=== PATIENT | male | born 1990 | race Caucasian/White ===

== ENCOUNTER 2021-09-09 11:34 | Emergency (ER) | payer OTHER, SELFPAY ==
[~2021-09-09] VITALS: Ht 170.2 cm; Wt 100.0 kg
[2021-09-09] MEDS ORDERED: OMEP-218 (11:39)
--- NOTE | 2021-09-09 12:04 | REP ---
INDICATION: band saw injury COMPARISON: None. TECHNIQUE: AP, lateral, bilateral oblique views left 3rd digit. FINDINGS: Soft tissue injury including laceration with small flecks of foreign body material overlie the head of the proximal phalanx and very subtle underlying injury to the bone cannot be excluded. IMPRESSION: Laceration with small flecks of foreign body material. Cannot exclude subtle injury to the head of the proximal phalanx. <Electronically signed by Drew Carlos > 09/09/21 1200
[2021-09-09] MEDS ORDERED: ceFAZolin SOD 1 GM in D5W MINI-BAG PLUS 50 ML IV ONE (12:55)
[2021-09-09] MEDS ORDERED: LIDOCAINE 1% MDV 20ML VIAL SC ONE (12:55)
[2021-09-09] MEDS ORDERED: CEPH500C PO (13:26)
--- OUTSIDE RECORDS SUMMARY | 2021-09-09 13:26 | CCD ---
Author Author [facility] Organization [facility] Address Unknown Phone Unavailable Care Team Providers Care Content Curator Name Role Phone NAREN CALDWELL MD Unavailable Unavailable NAREN CALDWELL MD Unavailable Unavailable NAREN CALDWELL MD Unavailable Unavailable NAREN CALDWELL MD Unavailable Unavailable NAREN CALDWELL MD Unavailable Unavailable NAREN CALDWELL MD Unavailable Unavailable NAREN CALDWELL MD Unavailable Unavailable NAREN CALDWELL MD Unavailable Unavailable NAREN CALDWELL MD Unavailable Unavailable NAREN CALDWELL MD Unavailable Unavailable NAREN CALDWELL MD Unavailable Unavailable NAREN CALDWELL MD Unavailable Unavailable NAREN CALDWELL MD Unavailable Unavailable NAREN CALDWELL MD Unavailable Unavailable NAREN CALDWELL MD Unavailable Unavailable NAREN CALDWELL MD Unavailable Unavailable NAREN CALDWELL MD Unavailable Unavailable NAREN CALDWELL MD Unavailable Unavailable NAREN CALDWELL MD Unavailable Unavailable NAREN CALDWELL MD Unavailable Unavailable NAREN CALDWELL MD Unavailable Unavailable NAREN CALDWELL MD Unavailable Unavailable NAREN CALDWELL MD Unavailable Unavailable NAREN CALDWELL MD Unavailable Unavailable NAREN CALDWELL MD Unavailable Unavailable NAREN CALDWELL MD Unavailable Unavailable NAREN CALDWELL MD Unavailable Unavailable NAREN CALDWELL MD Unavailable Unavailable NAREN CALDWELL MD Unavailable Unavailable NAREN CALDWELL MD Unavailable Unavailable NAREN CALDWELL MD Unavailable Unavailable NAREN CALDWELL MD Unavailable Unavailable NAREN CALDWELL MD Unavailable Unavailable NAREN CALDWELL MD Unavailable Unavailable NAREN CALDWELL MD Unavailable Unavailable NAREN CALDWELL MD Unavailable Unavailable NAREN CALDWELL MD Unavailable Unavailable NAREN CALDWELL MD Unavailable Unavailable NAREN CALDWELL MD Unavailable Unavailable NAREN CALDWELL MD Unavailable Unavailable NAREN CALDWELL MD Unavailable Unavailable NAREN CALDWELL MD Unavailable Unavailable NAREN CALDWELL MD Unavailable Unavailable NAREN CALDWELL MD Unavailable Unavailable NAREN CALDWELL MD Unavailable Unavailable NAREN CALDWELL MD Unavailable Unavailable NAREN CALDWELL MD Unavailable Unavailable NAREN CALDWELL MD Unavailable Unavailable NAREN CALDWELL MD Unavailable Unavailable NAREN CALDWELL MD Unavailable Unavailable NAREN CALDWELL MD Unavailable Unavailable MELISSA, NAREN MD Unavailable Unavailable MELISSA, NAREN MD Unavailable Unavailable MELISSA, NAREN MD Unavailable Unavailable MELISSA, NAREN MD Unavailable Unavailable MELISSA, NAREN MD Unavailable Unavailable MELISSA, NAREN MD Unavailable Unavailable MELISSA, NAREN MD Unavailable Unavailable MELISSA, NAREN MD Unavailable Unavailable MELISSA, NAREN MD Unavailable Unavailable MELISSA, NAREN MD Unavailable Unavailable MELISSA, NAREN MD Unavailable Unavailable MELISSA, NAREN MD Unavailable Unavailable Re-disclosure Warning The records that you are about to access may contain information from federally-assisted alcohol or drug abuse programs. If such information is present, then the following federally mandated warning applies: This information has been disclosed to you from records protected by federal confidentiality rules (42 CFR part 2). The federal rules prohibit you from making any further disclosure of this information unless further disclosure is expressly permitted by the written consent of the person to whom it pertains or as otherwise permitted by 42 CFR part 2. A general authorization for the release of medical or other information is NOT sufficient for this purpose. The Federal rules restrict any use of the information to criminally investigate or prosecute any alcohol or drug abuse patient.The records that you are about to access may contain highly sensitive health information, the redisclosure of which is protected by Article 27-F of the [facility] Public [facility] law. If you continue you may have access to information: Regarding HIV / AIDS; Provided by facilities licensed or operated by the [facility] Office of Mental Health; or Provided by the [facility] Office for People With Developmental Disabilities. If such information is present, then the following [facility] mandated warning applies: This information has been disclosed to you from confidential records which are protected by state law. State law prohibits you from making any further disclosure of this information without the specific written consent of the person to whom it pertains, or as otherwise permitted by law. Any unauthorized further disclosure in violation of state law may result in a fine or custodial sentence or both. A general authorization for the release of medical or other information is NOT sufficient authorization for further disc losure. Allergies and Adverse Reactions Type Description Substance Reaction Status Data Source(s ) No Known Allergy No Known Allergy [facility] Family History Family Member Name Family Member Gender Family Member Status Date o f Status Description Data Source(s) Unknown Condition [facility] Unknown Condition [facility] Unknown Condition [facility] Encounters Encounter Providers Location Date Indications Data Source(s ) Outpatient Attender: NAREN CALDWELL MDReferrer: NAREN CALDWELL MD 11/25/2020 07:58:00 AM [facility] - 11/25/2020 08:58:00 AM [facility] Outpatient Attender: NAREN CALDWELL MD 11/18/2020 03:49:00 PM ES T [facility] Outpatient Attender: NAREN CALDWELL MDReferrer: NAREN CALDWELL MD 10/28/2020 09:25:00 AM EST - 10/28/2020 10:16:00 AM [facility] Outpatient Attender: NAREN CALDWELL MD 10/07/2020 11:20:00 AM ES T Z00.00 [facility] Z00.00 Outpatient Attender: NAREN CALDWELL MDReferrer: NAREN CALDWELL MD 10/07/2020 09:42:00 AM [facility] - 10/07/2020 11:30:00 AM [facility] Immunizations Vaccine Date Status Description Data Source(s) COVID-19 VACCINE Moderna 02/02/2021 12:00:00 AM EDT completed [facility] Vaccine Series Complete: YESThis Data wa s Submitted to [facility] Via [employer]. COVID-19 VACCINE Moderna 01/05/2021 12:00:00 AM EDT completed [facility] Vaccine Series Complete: NOThis Data was Submitted to [facility] Via [employer]. Medications Medication Brand Name Start Date Product Form Dose Route Admi nistrative Instructions Pharmacy Instructions Status Indications Reaction Description Data Source(s) Omeprazole 20 MG Delayed Release Oral Capsule Omeprazole 11/25/2020 08:26:33 AM EST 20 MG active [facility] Omeprazole 20 MG Delayed Release Oral Capsule Omeprazole 10/28/2020 09:54:09 AM EST 20 MG active [facility] Omeprazole 20 MG Delayed Release Oral Capsule Omeprazole 10/28/2020 09:54:09 AM EST 20 MG completed [facility] Insurance Providers Payer name Policy type / Coverage type Policy ID Covered constitution party ID Covered constitution party's relationship to urban Policy Urban Plan Information [facility] [id number] [facility] 0 [id number] SELF PAY ONLY SP Self Pay P [id number] S [id number] Problems, Conditions, and Diagnoses No Information Surgeries/Procedures Procedure Description Date Indications Data Source(s) Viral antigen assay (procedure) 11/18/2020 12:00:00 AM [facility] Results ID Date Data Source [id number] 11/25/2020 08:01:00 AM [facility] Patient Name: FROY AL : 1990 Sex: M Pt Unit #: [id number] Location:[facility] Provider: Visit Date/Time: 11/25/20 Primary Insurance: PRIVATE INSURANCE FREE Secondary Insurance: Self Pay Intake Vital Signs 11/25/20 08:01 Current Height 5 ft 7.75 in Current Weight 219 lb 8 oz Weight Measurement Method Standing Scale BMI 33.6 BP 110/70 Blood Pressure Location Lt brachial Position Sitting Respiration 16 Pulse 70 Pulse Source Pulse Oximeter Pulse Oximetry (%) 98 Intake Visit Reasons: Gastroesophageal reflux disease (GERD) Nurse Note: 30 year old male here for followup on GERD. States is doing much better with the omeprozole. Student Development Dean Required: No Accompanied by: self Is patient in pain?: No Allergies No Known Allergy Allergy (Unknown, Uncoded 11/25/20 08:15) Medications - Last Reconciled 11/25/20 by Naren Caldwell DO omeprazole 20 mg PO QDAY HIV Testing Offer - ages 13-64 Requirement for HIV testing offer been met?: Patient reports past refusal Do you need a note to return Do you need a note to return to daycare/school/sports/work: No Coronavirus Screening Screening Are you currently positive or on isolation for COVID ?: No Do you have any NEW signs of one or more of the following?: no symptoms PFSH Medical History (Updated 11/25/20 @ 08:29 by Naren Caldwell DO) Dysphagia Lump Obesity Refractive error Surgical History (Updated 10/07/20 @ 10:46 by Naren Caldwell DO) Fatty tumor Family History (Updated 10/07/20 @ 10:50 by Naren Caldwell DO) Mother No problems noted. Father No problems noted. Brother No problems noted. Sister No problems noted. Brother Sleep apnea, unspecified Grandmother Breast cancer Grandmother Alzheimer's dementia Grandfather Restless leg syndrome Grandfather No problems noted. Uncle No problems noted. Aunt No problems noted. Uncle No problems noted. Uncle No problems noted. Social History (Updated 10/07/20 @ 11:02 by Naren Caldwell DO) Does the Patient have a Healthcare Proxy: No Does Patient have a DNR?: No Does Patient have a Living Will?: No Does the Patient have a MOLST?: No Advance Directives on File or in chart?: No adopted: No caregiver/support person: No foster care: No household members: none housing: apartment marital status: Single lives independently: Yes highest education level completed: some college, no degree service: No senior living: No current occupational status: employed current occupation: electrical and plumbing current occupational exposures/hazards: No pets and animals: No leisure activities: fishing Hx Recent Travel (where): No sexually active: Yes do you think of yourself as: straight/heterosexual current gender identity: male current diet type/program: other well-balanced diet: about half the time caffeine: No high-fat food intake: 2 times daily daily servings fruits/ve-1 daily servings of milk/calcium: 2-4 eating out: 4 or more times/week reads food labels: usually or always during the past year weight has: remained stable what type of physical activity do you participate in?: walking frequency: 3-4 times per week duration: 15-30 minutes/day Smoking Status: Never smoker alcohol intake: current counseling given: Yes substance use type: does not use sharri/mu-ism: Voodoo agree to t ransfusion: Yes seatbelt use: always drive intox or ride w/ intox driver merchandiser: No water heater temp set < 120 deg: Yes working smoke detector in home: Yes fire extinguisher in home: Yes carbon monox detector in home: Yes firearms in home: Yes HPI Additional HPI HPI Details: agree with library helper intake GERD History of Present Illness Current symptoms: Denies heartburn, dyspepsia, regurgitation, dysphagia, nighttime cough, hoarseness, sore throat, dental erosion, abdominal pain, hematemesis, vomiting, wheezing or worsening asthma Timing of symptoms: Reports after meals and nighttime; Denies before meals, with meals, intermittent, lying down or sleeping and with activity Frequency: occasionally Progression: improved (with omeprazole) Pertinent history: Denies alcohol use, tobacco use and NSAID use Previous treatment: Reports PPI (omprazole) Previous procedures: Reports none Previous testing: Reports none Associated symptoms: Denies abdominal distension, bloating, anorexia, choking, cough, diarrhea, difficulty breathing, nausea or odynophagia Review of Systems Const Denies anorexia ENT Denies dysphagia, Denies odynophagia and Denies sore throat Resp Denies cough and Denies wheezing GI Denies abdominal pain, Denies bloating, Denies dysphagia, Denies dyspepsia, Denies heartburn, Deniesdiarrhea, Denies nausea, Denies odynophagia, Denies vomiting and Denies hematemesis Aller/Immun Denies wheezing Exam Const General: cooperative, healthy appearing, no acute distress, well developed and well groomed Nutritional Appearance: well nourished Orientation: alert, awake and oriented x3 HENMT Head: normal to inspection, normocephalic and atraumatic Eyes General: appearance normal, both eyes and all related structures Visual Cummings: normal visual cummings by confrontation EOM: EOM intact bilaterally Neck Neck: normal visual inspection, full ROM, no lymphadenopathy, supple and no JVD present Neck mass: No Thyroid: thyroid normal Carotids: normal carotid upstroke Resp Effort Inspection: normal respiratory effort Auscultation: clear to auscultation bilaterally Cardio Jugular venous pressure: no JVD Palpation: normal PMI Rate: regular rate Rhythm: regular rhythm Heart Sounds: S1 normal and S2 normal Pulses: normal peripheral pulses GI Inspection: No abdominal distension, Yes obesity and Yes other (ventral hernia , reducible, n onincarcerated) Palpation: soft Auscultation: normal bowel sounds Extrem General: normal to inspection, full ROM, capillary refill normal, no clubbing, cyanosis or edema andno muscle atrophy Assessment Plan Assessment Plan (1) GERD (gastroesophageal reflux disease): Status: Chronic Code(s): K21.9 - Gastro-esophageal reflux disease without esophagitis SNOMED Code(s): 942131417 Category: Medical Plan - Naren Caldwell, DO: improved with omeprazole refilled medication f/u six months Medications: Refilled: omeprazole 20 mg PO QDAY 30 caps 11RF (2) Ventral hernia without obstruction or gangrene: Status: Acute Code(s): K43.9 - Ventral hernia without obstruction or gangrene SNOMED Code(s): 977771317 Category: Medical Plan - Naren Caldwell, DO: avoid heavy lifting fiber avoid constipation po fluids he is not interested in general surgeon referral for now if condition worsens, then go to ER Orders Follow Up: 6 (gerd, obesity) Coding Level of Care Code 84583 Est Pt Intermediate Comp Exam Expanded Problem Focused Diagnoses GERD (gastroesophageal reflux disease) K21.9 Ventral hernia without obstruction or gangrene K43.9 <Electronically signed by Naren Caldwell DO> 11/25/20 1500 Name Value Range Interpretation Code Description Data Mary Anne rce(s) Supporting Document(s) ID Date Data Source [id number] 11/18/2020 04:11:00 PM EST [facility] Normal result is "BinaxNow Covid-19 Ag n egative"BinaxNow Covid-19 Ag is a rapid lateral flowimmunochromatographic immunoassayThis test detects both viable(live) and non-viable, SARS-COVand SARS-COV-2.Positive test results do not differentiate between SARS-COVand [id number] results , from patients with symptom onset beyondseven days, should be treated as presumptive andconfirmation with a molecular assay, if necessary, forpatient managementIf the differentiation of specific SARS viruses and strainsis needed, additional testing, in consultation with stateand local public health departments, is required.SARS-CoV-2 Ag Resp Ql IA.rapid Name Value Range Interpretation Code Description Data Mary Anne rce(s) Supporting Document(s) ID Date Data Source [id number] 11/18/2020 03:07:00 PM EST [facility] Name Value Range Interpretation Code Description Data Mary Anne rce(s) Supporting Document(s) SARS-CoV-2 (COVID-19) Ag [Presence] in R espiratory specimen by Rapid immunoassay BinaxNow Covid -19 Ag Negative [facility] This lab was ordered by [facility] and reported by [facility]. ID Date Data Source [id number] 11/18/2020 12:00:00 AM EST [facility] Name Value Range Interpretation Code Description Data Mary Anne rce(s) Supporting Document(s) SARS-CoV-2 (COVID-19) RNA [Presence] in Respiratory specimen by RAVEN with probe detection Not Detected [facility] This lab was ordered by [facility] and reported by [facility]. ID Date Data Source [id number] 11/10/2020 12:00:00 AM EST [facility] Name Value Range Interpretation Code Description Data Mary Anne rce(s) Supporting Document(s) SARS-CoV-2 (COVID-19) RNA [Presence] in Respiratory specimen by RAVEN with probe detection Not Detected [facility] This lab was ordered by [facility] and reported by [facility]. ID Date Data Source [id number] 10/28/2020 09:37:00 AM EST [facility] Patient Name: FROY AL : 1990 Sex: M Pt Unit #: [id number] Location:[facility] Provider: Visit Date/Time: 10/28/20 Primary Insurance: PRIVATE INSURANCE FREE Secondary Insurance: Self Pay Intake Vital Signs 10/28/20 09:40 Current Height 5 ft 7.75 in Current Weight 211 lb 4 oz Weight Measurement Method Standing Scale BMI 32.3 BP 120/88 Blood Pressure Location Lt brachial Position Sitting Respiration 16 Pulse 68 Pulse Source Pulse Oximeter Pulse Oximetry (%) 98 Intake Visit Reasons: Annual Physical Nurse Note: 30 year old male here for annual exam. Had labs done 10-07-2020. Continues to have difficulty swallowing, states food does get stuck in his throat at times. Would like to see a ENT DrEdi now.Has been checking his BP at home and has list with him. Student Development Dean Required: No Accompanied by: Self / Same as Patient Is patient in pain?: No Allergies No Known Allergy Allergy (Unknown, Uncoded 10/28/20 09:52) Medications - Last Reconciled 10/28/20 by Naren Caldwell, DO No Known Home Medications Vision Wearing glasses?: Yes VA Far - right eye: 20/20 VA Far - left eye: 20/20 VA Far - bilateral eyes: 20/15 Fall Risk History of falls: No Ambulatory Aid:: None Gait/Transferring:: Normal Medications:: No High Risk Medications PHQ-2 /9 Over the last 2 weeks, how often have you been bothered by any of the following problems? 1. Little interest or pleasure in doing things: not at all 2. Feeling down, depressed, or hopeless: not at all Total score: 0 3. Trouble falling or staying asleep, or sleeping too much: not at all 4. Feeling tired or having little energy: not at all 5. Poor appetite or overeating: not at all 6. Feeling bad about yourself - or that you are a failure or have let yourself and your family down:not at all 7. Trouble concentrating on things, such as reading the newspaper or watching television: not at all 8. Moving or speaking so slowly that other people could have noticed? - Or the opposite - being so fidgety or restless that you have been moving around a lot more than usual: not at all 9. Thoughts that you would be better off or of hurting yourself in some way: not at all Total score: 0 If you checked off any problems, how difficult have these problems made it for you to do your work, ta ke care of things at home, or get along with other people?: not difficult at all Source: Developed by Drs. Eh Hooks, Jayleen Lu, Jj Ingram and colleagues, with an educational dianna from [employer]. HIV Testing Offer - ages 13-64 Requirement for HIV testing offer been met?: Patient reports past refusal SBIRT Annual Questionnaire Are you currently in recovery for alcohol or substance use?: No How many times in the past year have you had 5 or more drinks in a day?: 1 or more How many times in the past year have you used a recreational drug or used a prescription medication for nonmedical reasons?: None Do you need a note to return Do you need a note to return to daycare/school/sports/work: No Coronavirus Screening Screening Have you traveled outside of [facility] or [facility] in the last 14 days.: Yes Has patient experienced coronavirus symptoms: No [facility] Medical History (Updated 10/28/20 @ 10:08 by Naren Caldwell DO) Dysphagia Lump Obesity Refractive error Surgical History (Updated 10/07/20 @ 10:46 by Naren Caldwell DO) Fatty tumor Family History (Updated 10/07/20 @ 10:50 by Naren Caldwell DO) Mother No problems noted. Father No problems noted. Brother No problems noted. Sister No problems noted. Brother Sleep apnea, unspecified Grandmother Breast cancer Grandmother Alzheimer's dementia Grandfather Restless leg syndrome Grandfather No problems noted. Uncle No problems noted. Aunt No problems noted. Uncle No problems noted. Uncle No problems noted. Social History (Updated 10/07/20 @ 11:02 by Naren Caldwell DO) Does the Patient have a Healthcare Proxy: No Does Patient have a DNR?: No Does Patient have a Living Will?: No Does the Patient have a MOLST?: No Advance Directives on File or in chart?: No adopted: No caregiver/support person: No foster care: No household members: none housing: apartment marital status: Single lives independently: Yes highest education level completed: some college, no degree service: No senior living: No current occupational status: employed current occupation: electrical and plumbing current occupational exposures/hazards: No pets and animals: No leisure activities: fishing Hx Recent Travel (where): No sexually active: Yes do you think of yourself as: straight/heterosexual current gender identity: male current diet type/program: other well-balanced diet: about half the time caffeine: No high-fat food intake: 2 times daily daily servings fruits/ve-1 daily servings of milk/calcium: 2-4 eating out: 4 or more times/week reads food labels: usually or always during the past year weight has: remained stable what type of physical activity do you participate in?: walking frequency: 3-4 times per week duration: 15-30 minutes/day Smoking Status: Never smoker alcohol intake: current counseling given: Yes substance use type: does not use sharri/mu-ism: Voodoo agree to transfusion: Yes seatbelt use: always drive intox or ride w/ intox driver merchandiser: No water heater temp set < 120 deg: Yes working smoke detector in home: Yes fire extinguisher in home: Yes carbon monox detector in home: Yes firearms in home: Yes HPI Additional HPI HPI Details: agree with library helper intake history Adult Health Maintenance History of present illness Are you having any pain?: No Correction (vision test): patient wearing glasses Dietary habits Has a well balanced diet: about half the time Eats a low calorie diet: about half the time Estimated fat intake is: 2 times daily Eats fruits and vegetables: 0-1 Estimated daily calcium intake: 2-4 Estimated daily iron intake: roughly 8 mg/day Estimated daily fiber intake: roughly 25 mg/day Number of meals per day: 2 Eats out: 4 or more times/week Reads food labels: usually or always During the past year, weight has: remained stable Caffeine: No Patient counseled regarding lifestyle changes to maintain healthy weight including healthy diet and importance of exercise: Yes Exercise Exercise frequency: does not exercise Exercise duration per day: <15 minutes/day Exercise duration per week: <100 minutes/week Resistance training per week: none Skin cancer risk assessment Protective factors: 1. Do you wear broad- spectrum sunscreen of SPF 15 or greater?: yes, 2. Do you wear hats or other shade-protective clothing?: yes and 3. Do you avoid going outdoors during midday hours (10 AM to 3 PM)?: yes Risk factors: 4. Do you do indoor tanning?: no, 5. Do you have fair skin?: no, 6. Do you have blue, rbiones, or green eyes?: yes, 7. Do you have blond or red hair?: no and 8. Do you have skin that almazan,freckles, reddens easily, or becomes painful in the sun?: no Counseling done: Yes Dental care Dental care: receives dental care, flosses and brushes STI risk assessment Questions for the patient: 1. Have you ever had sex (no matter whether oral, vaginal, or anal)?: yes, 2. Do you have sex with men?: no, 3. Do you have sex with women?: yes, 4. Do you have sex with both men and women?: no, 5. Have you had sex within the last 12 months?: yes, 6. Are you in a long-term relationship in which you and your partner only have sex with each other and no one else?: yes,7. Have you had a new partner within the last 12 months?: no, 8. Have you had multiple sexual partners within the last 12 months?: no, 9. Do you use condoms every time you have sex?: no, 10. Do you have sex while under the influence of alcohol or drugs?: no, 11. Do you have sex in exchange formoney or drugs?: no, 12. Do you use IV drugs?: no, 13. Do you have a sexual partner who has HIV, is bisexual, or uses IV drugs?: no, 14. Have you had a sexually transmitted infection?: no, 15. Have you requested testing for a sexually transmitted infection within the last 24 months?: no, 16. Have you been tested for HIV?: no and 17. Do you live in an adult correctional facility?: no Questions for the provider: 18. Does the patient live or receive medical care in a setting with a high prevalence for HIV or syphilis?: no STI risk assessment done: Yes Counseled regarding STI risk: Yes Sexual preference and activity Sexual preference: prefers women Coronary Heart Disease risk assessment Risk factor: 1. Do you have diabetes?: no, 2. Do you have (or have you ever had) any of the following: CHD, CAD, heart attack, noncoronary atherosclerosis, abdominal aneurysm, peripheral artery disease, carotid artery stenosis?: no, 3. Do you have a close male relative who had cardiovascular disease (such as a heart attack) before the age of 50 or a female relative who had itbefore age 60?: no, 4. Do you use tobacco in any form (cigarettes, e-cigarettes, cigars, etc.)?: no,5. Do you have hypertension (high blood pressure)?: no and 6. Is your body mass index (BMI) 30 kg/m2or greater?: yes Tobacco smoking status: Never smoker Alcohol Alcohol: drinks Drinks: beer and frequency Drugs/substances Substances: denies use Safety Car safety: never wears a seatbelt Home safety: water heater temperature set to <120 degrees, has working smoke detectors in home, has a fire extinguisher in the home and has a working carbon monoxide detector in the home Risk factor: 1. Was born in a country or region with a high prevalence of HBV?: no, 2. Was born in the [place] AND was not vaccinated as infant AND whose parents are from [place], [place], [place] or the [place] (excluding [place] and [place])?: no, 3. Is HIV positive?: no, 4. Is or was an IV drug user?: no, 5. Is a man who has sex with men?: no, 6. Lives in the same household as a person with a Hepatitis B infection?: no, 7. Has persistently elevated ALT or AST levels of unknown etiology: no, 8. Is on hemodialysis: no and 9. Is on cytotoxic or immunosuppressive therapy (for example, chemotherapy for malignant diseases, or immunosuppression related to organ transplantation, rheumatologic or gastroenterologic disorders).: no Risk factor: 1. Do you currently use IV drugs?: no, 2. Do you have a history of IV drug use?: no and3. Were you born between 1945 and 1964?: no Review of Systems Const Reports system reviewed and no additional complaints, except as documented Eyes Reports system reviewed and no additional complaints, except as documented ENT Reports as per HPI and Reports dysphagia Card Reports system reviewed and no additional complaints, except as documented Resp Reports system reviewed and no additional complaints, except as documented GI Reports as per HPI and Reports dysphagia Reports system reviewed and no additional complaints, except as documented Musc Reports system reviewed and no additional complaints, except as documented Skin/Breast Reports system reviewed and no additional complaints, except as documented Neuro Reports system reviewed and no additional complaints, except as documented Psych Reports system reviewed and no additional complaints, except as documented Endo Reports system reviewed and no additional complaints, except as documented Cisco/Lymph Reports system r eviewed and no additional complaints, except as documented Aller/Immun Reports system reviewed and no additional complaints, except as documented Exam Const General: cooperative, healthy appearing, no acute distress, well developed and well groomed Nutritional Appearance: well nourished Orientation: alert, awake and oriented x3 HENMT Head: normal to inspection, normocephalic and atraumatic Ears: hearing grossly normal bilaterally General nose exam: external nose normal Face and sinus: normal facial exam Mouth: oral mucosae normal, lip normal and tongue normal Teeth and gingiva: dentition normal Throat: posterior oropharynx normal Eyes General: appearance normal, both eyes and all related structures Visual Cummings: normal visual cummings by confrontation Alignment and Position: alignment normal EOM: EOM intact bilaterally Neck Neck: normal visual inspection, full ROM, no lymphadenopathy, supple and no JVD present Neck mass: No Thyroid: thyroid normal Carotids: normal carotid upstroke Chest Chest: normal inspection of the chest Resp Effort Inspection: normal respiratory effort Auscultation: clear to auscultation bilaterally Percussion: percussion normal Cardio Jugular venous pressure: no JVD Palpation: normal PMI Rate: regular rate Rhythm: regular rhythm Heart Sounds: S1 normal and S2 normal Pulses: normal peripheral pulses GI Inspection: Yes obesity Palpation: soft Auscultation: normal bowel sounds General: deferred Musc Cervical Spine: normal cervical lordosis and cervical ROM normal Thoracic/Lumbar Spine: thoracic and lumbar spine normal to inspection, thoraco-lumbar ROM normal andstraight leg raise negative bilaterally Pelvis: no pain with anterior-posterior compression and no pain with lateral compression Skin Lesions: no lesions Rashes: no rashes Hair: normal Nails: normal Neuro General: patient alert, patient awake, patient oriented x3, gait normal, moves all extremities and normal light touch, pain and propioception Cranial Nerves: CN's II-XII intact bilaterally Cognition: normal cognition Speech: speech normal Gait: normal gait Motor: muscle tone normal throughout and strength 5/5 throughout Sensory Exam: no sensory deficits noted Extrem General: normal to inspection, full ROM, capillary refill normal, no clubbing, cyanosis or edema andno muscle atrophy Psych Appearance: grossly normal and well kempt Mental Status: mental status grossly normal Speech and Movement: speech and movement normal Affect: normal affect Attitude: cooperative Thought Process: normal Thought Content: normal Insight: insight good Judgment: judgment good Quality Reporting Depression/Bipolar (159/160/161/169/177) Total score: 0 Assessment Plan Assessment Plan (1) Encounter for annual health examination: Code(s): Z00.00 - Encounter for general adult medical examination without abnormal findings Plan - Naren Caldwell DO: completed annual physical exam reviewed labs with patient abnormal lft - repeat in about 6 months (2) GERD (gastroesophageal reflux disease): Status: Acute Code(s): K21.9 - Gastro- esophageal reflux disease without esophagitis SNOMED Code(s): 556340929 Category: Medical Plan - Naren Caldwell DO: needs improvement food diary begin omeprazole f/u 2 weeks if no improvement, then he may need EGD by general surgeon he agrees to plan Orders Other Medications: New: omeprazole 20 mg PO QDAY 30 caps 2RF Follow Up: 2 (gerd) Coding Level of Care Code 83243 Well 18-39 (Est) Exam Detailed Diagnoses Encounter for annual health examination Z00.00 GERD (gastroesophageal reflux disease) K21.9 <Electronically signed by Naren Caldwell DO> 10/28/20 1634 Name Value Range Interpretation Code Description Data Mary Anne rce(s) Supporting Document(s) ID Date Data Source [id number] 10/07/2020 11:36:00 AM EST [facility] Name Value Range Interpretation Code Description Data Mary Anne rce(s) Supporting Document(s) Leukocytes [#/volume] in Blood by Automated count 10.1 10*3/uL 4.45-1 0.71 [facility] Erythrocytes [#/volume] in Blood by Automated count 5.93 10*6/uL 4.3- 6.1 [facility] Hemoglobin [Moles/volume] in Blood 17.0 g/dL 13-18 N [facility] Hematocrit [Volume Fraction] of Blood by Automated count 49.0 % 4 2-52 N [facility] Erythrocyte mean corpuscular volume [Ent itic volume] in Cord blood by Automated count 82.6 fL 80-96 N [facility] ital Erythrocyte mean corpuscular hemoglobin [Entitic mass] by Automated count 28.7 pg 27-31 N [facility] l Erythrocyte mean corpuscular hemoglobin concentration [Mass/volume] in Cord blood 34.7 g/dL 33-37 [facility] ital Erythrocyte distribution width [Entitic volume] by Automated count 12 % 11-15 N [facility] Platelets [#/volume] in Blood by Automated count 296 10*3/uL 130-472 N [facility] Platelet mean volume [Entitic volume] in Blood 9.3 fL 9.1-13.1 N [facility] Neutrophils/100 leukocytes in Blood by Automated count 63.6 % 41- 77 N [facility] Neutrophils [#/volume] in Blood by Automated count 6.4 U 1.7-7.6 N [facility] Lymphocytes/100 leukocytes in Blood by Automated count 26.9 % 14- 46 N [facility] Lymphocytes [#/volume] in Blood by Automated count 2.7 U 0.6-4.6 N [facility] Monocytes/100 leukocytes in Blood by Automated count 5.3 % 4-12 N [facility] Monocytes [#/volume] in Blood by Automated count 0.5 U 0.2-1.2 N [facility] Eosinophils/100 leukocytes in Blood by Automated count 3.0 % 0-7 N [facility] Eosinophils [#/volume] in Blood by Automated count 0.3 U 0.0-0.5 N [facility] Basophils/100 leukocytes in Blood by Automated count 0.9 % 0.4-1 .3 N [facility] Basophils [#/volume] in Blood by Automated count 0.1 U 0.0-0.2 N [facility] NUCLEATED RED BLOOD CELL 0 % [facility] NUCLEATED RED BLOOD CELL# 0 U [facility] Immature granulocytes [Presence] in Blood by Automated count 0-2 N [facility] Immature granulocytes [#/volume] in Blood by Automated count 0.0 U 0-0.1 N [facility] Manual Differential panel - Blood NO [facility] ID Date Data Source [id number] 10/07/2020 12:22:00 PM EST [facility] Name Value Range Interpretation Code Description Data Mary Anne rce(s) Supporting Document(s) Urea nitrogen [Mass/volume] in Serum or Plasma 11 mg/dL 9-23 N [facility] Sodium [Moles/volume] in Serum or Plasma 141 mmol/L 132-146 [facility] Potassium [Moles/volume] in Serum or Plasma 4.3 mmol/L 3.5-5.5 N [facility] Chloride [Moles/volume] in Serum or Plasma 108 mmol/L 99-109 N [facility] Carbon dioxide, total [Moles/volume] in Serum or Plasma 28 mmol/L 20 -31 N [facility] Anion gap in Serum or Plasma 9 mmol/L 8-16 N [facility] Glucose [Mass/volume] in Serum or Plasma 94 mg/dL 74-106 N [facility] Creatinine 1.0 mg/dL 0.5-1.1 [facility] Glomerular filtration rate/1.73 sq M.pre dicted [Volume Rate/Area] in Serum or Plasma Greater Than 60 ABOVE 60 [facility] Alanine aminotransferase [Enzymatic acti vity/volume] in Serum or Plasma by With P-5'-P 92 U/L 10-49 Above high normal [facility] Aspartate aminotransferase [Enzymatic ac tivity/volume] in Serum or Plasma by With P-5'-P 33 U/L 0-33 N [facility] pital Alkaline phosphatase [Enzymatic activity/volume] in Serum or Plasma 76 U/L 45-129 N [facility] Calcium [Mass/volume] in Serum or Plasma 9.5 mg/dL 8.5-10.1 [facility] Bilirubin.total [Mass/volume] in Serum or Plasma 0.5 mg/dL 0.3-1.2 [facility] Albumin [Mass/volume] in Serum or Plasma by Bromocresol purple (BCP) dye binding method 4.2 g/dL 3.2-4.8 N [facility] ital Protein [Mass/volume] in Serum or Plasma 7.3 g/dL 5.7-8.2 N [facility] ID Date Data Source [id number] 10/07/2020 10:25:00 AM [facility] Patient Name: FROY AL : 1990 Sex: M Pt Unit #: [id number] Location:[facility] Provider: Visit Date/Time: 10/07/20 Primary Insurance: PRIVATE INSURANCE FREE Secondary Insurance: Self Pay Intake Vital Signs 10/07/20 10:25 Current Height 5 ft 7.75 in Current Weight 210 lb 6 oz Weight Measurement Method Standing Scale BMI 32.2 BP 120/90 Blood Pressure Location Lt brachial Position Sitting Respiration 16 Pulse 77 Pulse Source Pulse Oximeter Pulse Oximetry (%) 98 Intake Visit Reasons: Encounter to Establish Care Nurse Note: 30 year old male here to et established today. States has been years since seen by a .Has a spot on his left side he would like checked. Student Development Dean Required: No Accompanied by: self Is patient in pain?: No Allergies No Known Allergy Allergy (Unknown, Uncoded 10/07/20 10:44) Medications - Last Reconciled 10/07/20 by Naren Caldwell, DO No Known Home Medications Fall Risk History of falls: No Ambulatory Aid:: None Gait/Transferring:: Normal Medications:: No High Risk Medications PHQ-2/9 Over the last 2 weeks, how often have you been bothered by any of the following problems? 1. Little interest or pleasure in doing things: not at all 2. Feeling down, depressed, or hopeless: not at all Total score: 0 3. Trouble falling or staying asleep, or sleeping too much: not at all 4. Feeling tired or having little energy: several days 5. Poor appetite or overeating: not at all 6. Feeling bad about yourself - or that you are a failure or have let yourself and your family down:not at all 7. Trouble concentrating on things, such as reading the newspaper or watching television: not at all 8. Moving or speaking so slowly that other people could have noticed? - Or the opposite - being so fidgety or restless that you have been moving around a lot more than usual: not at all 9. Thoughts that you would be better off or of hurting yourself in some way: not at all Total score: 1 If you checked off any problems, how difficult have these problems made it for you to do your work, take care of things at home, or get along with other people?: not difficult at all Source: Developed by Drs. Eh Hooks, Jayleen Lu, Jj Ingram and colleagues, with an educational dianna from [employer]. HIV Testing Offer - ages 13-64 HIV testing Offer: Yes Requirement for HIV testing offer been met?: Patient reports past refusal Do you need a note to return Do you need a note to return to daycare/school/sports/work: No Coronavirus Screening Screening Have you traveled outside of [facility] or [facility] in the last 14 days.: No Has patient experienced coronavirus symptoms: No PFSH Medical History (Updated 10/07/20 @ 14:26 by Naren Caldwell DO) Dysphagia Lump Obesity Refractive error Surgical History (Updated 10/07/20 @ 10:46 by Naren Caldwell DO) Fatty tumor Family History (Updated 10/07/20 @ 10:50 by Naren Caldwell DO) Mother No problems noted. Father No problems noted. Brother No problems noted. Sister No problems noted. Brother Sleep apnea, unspecified Grandmother Breast cancer Grandmother Alzheimer's dementia Grandfather Restless leg syndrome Grandfather No problems noted. Uncle No p roblems noted. Aunt No problems noted. Uncle No problems noted. Uncle No problems noted. Social History (Updated 10/07/20 @ 11:02 by Naren Caldwell DO) Does the Patient have a Healthcare Proxy: No Does Patient have a DNR?: No Does Patient have a Living Will?: No Does the Patient have a MOLST?: No Advance Directives on File or in chart?: No adopted: No caregiver/support person: No foster care: No household members: none housing: apartment marital status: Single lives independently: Yes highest education level completed: some college, no degree service: No senior living: No current occupational status: employed current occupation: electrical and plumbing current occupational exposures/hazards: No pets and animals: No leisure activities: fishing Hx Recent Travel (where): No sexually active: Yes do you think of yourself as: straight/heterosexual current gender identity: male current diet type/program: other well-balanced diet: about half the time caffeine: Yes high-fat food intake: 2 times daily daily servings fruits/ve-1 daily servings of milk/calcium: 2-4 eating out: 4 or more times/week reads food labels: usually or always during the past year weight has: remained stable what type of physical activity do you participate in?: walking frequency: 3-4 times per week duration: 15-30 minutes/day Smoking Status: Never smoker alcohol intake: current counseling given: Yes substance use type: does not use sharri/mu-ism: Voodoo agree to transfusion: Yes seatbelt use: always drive intox or ride w/ intox driver merchandiser: No water heater temp set < 120 deg: Yes working smoke detector in home: Yes fire extinguisher in home: Yes carbon monox detector in home: Yes firearms in home: Yes HPI Additional HPI HPI Details: agree with library helper intake history spot on back left side for five to ten years denies fever, denies bug bite girlfriend noticed it he denies other complaints Review of Systems Const All systems reviewed are unremarkable except as noted in HPI and below Eyes Reports requires corrective lenses ENT Reports dysphagia (for about five years) Card Reports system reviewed and no additional complaints, except as documented Resp Reports system reviewed and no addition al complaints, except as documented GI Reports system reviewed and no additional complaints, except as documented Reports system reviewed and no additional complaints, except as documented Musc Reports system reviewed and no additional complaints, except as documented Skin/Breast Reports as per HPI Neuro Reports system reviewed and no additional complaints, except as documented Psych Reports system reviewed and no additional complaints, except as documented Endo Reports system reviewed and no additional complaints, except as documented Cisco/Lymph Reports system reviewed and no additional complaints, except as documented Aller/Immun Reports system reviewed and no additional complaints, except as documented Exam Const General: cooperative, healthy appearing, no acute distress, well developed and well groomed Nutritional Appearance: well nourished and obese Orientation: alert, awake and oriented x3 HENMT Head: normal to inspection, normocephalic and atraumatic Ears: hearing grossly normal bilaterally Eyes General: appearance normal, both eyes and all related structures Visual Cummings: normal visual cummings by confrontation Alignment and Position: alignment normal EOM: EOM intact bilaterally Neck Neck: normal visual inspection, full ROM and supple Resp Effort Inspection: normal respiratory effort Cardio Jugular venous pressure: no JVD GI Inspection: Yes obesity Musc Cervical Spine: normal cervical lordosis Thoracic/Lumbar Spine: thoracic and lumbar spine normal to inspection Skin Other: left side of back 2cm x 2cm moveable, nontender, nondrainage lump Neuro General: patient alert, patient awake and patient oriented x3 Cognition: normal cognition Speech: speech normal Gait: normal gait Extrem General: full ROM and normal gait Psych Appearance: grossly normal and well kempt Mental Status: mental status grossly normal Speech and Movement: speech and movement normal Affect: normal affect Attitude: cooperative Thought Process: normal Thought Content: normal Insight: insight good Judgment: judgment good Quality Reporting Depression/Bipolar (159/160/161/169/177) Total score: 1 Assessment Plan Assessment Plan (1) Encounter to establish care with new doctor: Code(s): Z76.89 - Persons encountering health services in other specified circumstances Plan - Naren Caldwell DO: reviewed history labs ordered f/u two weeks for annual physical exam (2) Elevated blood pressure reading: Status: Acute Code(s): R03.0 - Elevated blood-pressure reading, without diagnosis of hypertension SNOMED Code(s): 15271147 Category: Medical Plan - Naren Caldwell DO: bp diary f/u 2 weeks if condition worsens, then go to ER (3) Dysphagia: Status: Chronic Code(s): R13.10 - Dysphagia, unspecified SNOMED Code(s): 33428064 Category: Medical Faye - Naren Caldwell DO: smaller bites more chews drink more liquids he refuses swallow studies if condition worsens, then go to ER (4) Lump: Status: Chronic SNOMED Code(s): 992749450 Category: Medical Plan - Naren Caldwell DO: h/o fatty tumor removed reassurance and observation he doesn't want general surgeon to remove small lump for now if condition worsens, then go to ER (5) Obesity: Status: Chronic Code(s): E66.9 - Obesity, unspecified SNOMED Code(s): 423654670 Category: Medical Faye Caldwell DO: lifestyle modifications (6) Refractive error: Status: Chronic Code(s): H52.7 - Unspecified disorder of refraction SNOMED Code(s): 16299474 Category: Medical Faye Caldwell DO: f/u eye doctor Orders Other Orders: Orders: CMP Today Z00.00 CBC W AUTO DIFF Today Z00.00 Follow Up: 2 (annual exam) Coding Level of Care Code 62933 New Pt Intermediate Comp Exam Expanded Problem Focused Diagnoses Encounter to establish care with new doctor Z76.89 Elevated blood pressure reading R03.0 Dysphagia R13.10 Lump Obesity E66.9 Refractive error H52.7 <Electronically signed by Naren Caldwell DO> 10/07/20 1427 Name Value Range Interpretation Code Description Data Mary Anne rce(s) Supporting Document(s) Procedure Social History Code Duration Value Status Description Data Source(s ) 10/28/2020 10:02:50 AM EST Never smoker completed Never [facility] 10/28/2020 10:02:50 AM EST Never smoker completed Never [facility] Smoking 10/28/2020 10:02:00 AM EST Never smoker completed Never [facility] Smoking 10/28/2020 10:02:00 AM EST Never smoker completed Never [facility] 10/07/2020 11:02:36 AM EST Never smoker completed Never [facility] Smoking 10/07/2020 11:02:00 AM EST Never smoker completed Never [facility]
[2021-09-09 13:30] VITALS: BP 139/88
== END 2021-09-09 14:13 | disposition home or self-care (01) ==
LOC: M ED 11:34
DX: S61.323A Laceration with foreign body of left middle finger with damage to nail, initial encounter (principal); W26.8XXA Contact with other sharp object(s), not elsewhere classified, initial encounter; Y92.9 Unspecified place or not applicable; Y93.9 Activity, unspecified; Y99.9 Unspecified external cause status
CPT/HCPCS: 12002; 73140; 96365; 99284; J0690

== ENCOUNTER → 2021-11-16 | Outpatient (CLI) | payer OTHER ==
[~2021-11-16] MED LIST: CEPH500C PO; E-Z-GAS II EFFERVESCENT PACKET (SODIUM BICARB./CITRIC ACID/SIMETHICONE) As Ordered ONE; E-Z-HD 98% w/w 340GM SUSP BTL As Ordered ONE; E-Z-PAQUE 96% w/w SUSP 176GM BTL As Ordered ONE; OMEP-173
== END ==
LOC: M RAD 11-10 08:22
PROVIDERS: ATTEND Otolaryngology
DX: K21.9 Gastro-esophageal reflux disease without esophagitis (principal)

== ENCOUNTER → 2022-02-28 | Outpatient (CLI) | payer BC ==
[~2022-02-28] MED LIST changes: -E-Z-GAS II EFFERVESCENT PACKET (SODIUM BICARB./CITRIC ACID/SIMETHICONE) As Ordered ONE; -E-Z-HD 98% w/w 340GM SUSP BTL As Ordered ONE; -E-Z-PAQUE 96% w/w SUSP 176GM BTL As Ordered ONE; +OMEP40CA5
== END ==
LOC: M LABSMTC 09:07
PROVIDERS: ATTEND Anesthesiology
DX: Z01.812 Encounter for preprocedural laboratory examination (principal); Z20.822 Contact with and (suspected) exposure to COVID-19

== ENCOUNTER 2022-03-02 11:48 | Day surgery (SDC) | payer BC ==
[~2022-03-02] VITALS: Ht 170.2 cm; Wt 103.3 kg
[~2022-03-02 11:48] MED LIST changes: +NS 1,000 ML IV ONE
[2022-03-02] MEDS ORDERED: fentaNYL 100 MCG/2 ML INJECTION As Ordered ONE (14:31)
[2022-03-02] MEDS ORDERED: propofoL 200 MG/20 ML VIAL As Ordered ONE (14:59)
[2022-03-02] MEDS ORDERED: LIDOCAINE 2% 100MG/5ML SDV (FOR ANES.) As Ordered ONE (14:59)
[2022-03-02 15:20] VITALS: BP 128/80
== END 2022-03-02 15:26 | disposition home or self-care (01) ==
LOC: M OPP 11:48
PROVIDERS: ATTEND Internal Medicine Gastroenterology
DX: K22.89 Other specified disease of esophagus (principal); K29.70 Gastritis, unspecified, without bleeding; K22.70 Barrett's esophagus without dysplasia; R13.10 Dysphagia, unspecified; R12 Heartburn
CPT/HCPCS: 43239; 43249; 88305; J3010

== ENCOUNTER 2022-07-30 11:41 | Day surgery (SDC) | payer BC ==
[~2022-07-30] VITALS: Ht 170.2 cm; Wt 104.7 kg
[~2022-07-30 11:41] MED LIST changes: +PANT40TA29 PO
[2022-07-30] MEDS ORDERED: propofoL 200 MG/20 ML VIAL As Ordered ONE (14:39)
[2022-07-30] MEDS ORDERED: ONDANSETRON 4MG 2ML VIAL As Ordered ONE (14:39)
[2022-07-30 15:10] VITALS: BP 134/83
== END 2022-07-30 15:23 | disposition home or self-care (01) ==
LOC: M OPP 11:41
PROVIDERS: ATTEND Internal Medicine Gastroenterology
DX: K22.70 Barrett's esophagus without dysplasia (principal); K22.2 Esophageal obstruction; K29.70 Gastritis, unspecified, without bleeding; Z79.899 Other long term (current) drug therapy
CPT/HCPCS: 43239; 43249; 88305; J2405

== ENCOUNTER 2025-02-18 13:32 | Day surgery (SDC) | payer BC ==
[~2025-02-18] VITALS: Ht 175.3 cm; Wt 101.2 kg
[~2025-02-18 13:32] MED LIST changes: -NS 1,000 ML IV ONE
[2025-02-18] MEDS ORDERED: propofoL 200 MG/20 ML VIAL As Ordered ONE (14:49)
[2025-02-18] MEDS ORDERED: LIDOCAINE 2% 100MG/5ML SDV (FOR ANES.) As Ordered ONE (14:54)
[2025-02-18] MEDS ORDERED: GLYCOPYRROLATE INJ 0.2 MG/ML 2 ML VIAL As Ordered ONE (14:54)
[2025-02-18 15:11] VITALS: TEMP 97.2
[2025-02-18 15:28] VITALS: BP 128/64; O2SAT 100
== END 2025-02-18 15:29 | disposition home or self-care (01) ==
LOC: M OPP 13:32
PROVIDERS: ATTEND Internal Medicine Gastroenterology
DX: K44.9 Diaphragmatic hernia without obstruction or gangrene (principal); K22.70 Barrett's esophagus without dysplasia; Z79.899 Other long term (current) drug therapy
CPT/HCPCS: 43239; 88305; J1596